=== PATIENT | female | born 1935 | race African-American/Black ===

== ENCOUNTER 2017-05-31 11:29 | Inpatient (IN) | payer MEDICARE, OTHER ==
[~2017-05-31] VITALS: Ht 162.6 cm; Wt 73.6 kg
[~2017-05-31 11:29] MED LIST: AMIN30LI28 PO; AMLO-511 PO; DOCU-119 PO; DOXY100C PO; FURO20 PO; IPRA3AMP4 NEB; IPRAHFA IH; PRED-284 PO
[2017-05-31] MEDS ORDERED: MethylPREDNISolone SOD SUCC 125 MG/2 ML VIAL IVP ONE (11:45)
[2017-05-31] MEDS ORDERED: IPRATROPIUM BROMIDE 0.5 MG/2.5 ML NEB SOLUTION NEB ONE (11:45)
[2017-05-31] MEDS ORDERED: ALBUTEROL SULFATE 5 MG/ML 20 ML NEB SOLN [BULK] NEB ONE (11:45)
[2017-05-31] MEDS ORDERED: 0.9% SODIUM CHLORIDE 15 ML NEB SOLUTION NEB ONE (11:51)
[2017-05-31 12:00] LABS: BASOPHILS % (AUTO) 0.3 % (0.0-2.0); EOSINOPHILS % (AUTO) 0.2 % (1.0-6.0); HEMATOCRIT 38.1 % (36-46); HEMOGLOBIN 12.1 g/dL (12.0-16.0); LYMPHOCYTES % (AUTO) 15.4 % (22.0-44.0); MEAN CORPUSCULAR HEMOGLOBIN 27.8 pg (26.0-34.0); MEAN CORPUSCULAR HGB CONC 31.8 G/dL (31.0-37.0); MEAN CORPUSCULAR VOLUME 87 fL (80-100); MONOCYTES # (AUTO) 1.3 K/uL (0.1-1.0); MONOCYTES % (AUTO) 9.9 % (2.0-9.0); NEUTROPHILS # (AUTO) 9.7 K/uL (1.8-7.7); NEUTROPHILS % (AUTO) 74.2 % (40.0-70.0); PLATELET COUNT (AUTO) 348 K/uL (150-450); RED BLOOD CELL COUNT(AUTO) 4.37 MIL/uL (4.00-5.20); RED CELL DISTRIBUTION WIDTH 18.7 % (11.5-14.5)
[2017-05-31 12:01] LABS: APPEARANCE,URINE TURBID (CLEAR); GLUCOSE, URINE (UA) NEGATIVE (NEGATIVE); KETONES,URINE NEGATIVE (NEGATIVE); LEUKOCYTE ESTERASE ,URINE MODERATE (NEGATIVE); OCCULT BLOOD,URINE NEGATIVE (NEGATIVE); PROTEIN,URINE TRACE (NEGATIVE)
[2017-05-31 12:06] LABS: ADD UA MICROSCOPIC YES
[2017-05-31 12:13] LABS: ALANINE AMINOTRANSFERASE 19 U/L (12-78); ALBUMIN 2.3 g/dL (3.4-5.0); ANION GAP -3 mmol/L (8-16); ASPARTATE AMINOTRANSFERASE 18 U/L (15-37); BILIRUBIN,TOTAL 0.2 mg/dL (0.1-1.0); CALCIUM, TOTAL 8.8 mg/dL (8.8-10.5); CHLORIDE 89 mmol/L (98-107); CREATININE 0.53 mg/dL (0.60-1.30); GLOMERULAR FILTR. RATE CALC > 60 mL/min (>60); POTASSIUM 3.6 mmol/L (3.5-5.1); SODIUM SERUM 131 mmol/L (136-145); TOTAL PROTEIN, SERUM 6.9 g/dL (6.4-8.2); UREA NITROGEN, BLOOD 39 mg/dL (7-18)
[2017-05-31] MEDS ORDERED: SODIUM CHLORIDE 0.9% 1,000 ML IV ONE ×2 (12:15→12:45)
[2017-05-31 12:17] LABS: B-TYPE NATRIURETIC PEPTIDE 468 pg/mL (0-100)
[2017-05-31 12:18] LABS: CARBON DIOXIDE 45 mmol/L (22-29)
[2017-05-31 12:20] LABS: RBC,URINE None Seen /HPF (0-2); SQUAMOUS EPITHELIAL CELL,UR Few /LPF (None Seen); WBC,URINE 26-50 /HPF (0-5)
[2017-05-31 12:23] LABS: RBC MORPHOLOGY COMMENT ABNORMAL RBC MORPH
[2017-05-31] MEDS ORDERED: PIPERACILLIN/TAZO 3.375 GM/D5W 50 ML IV ONE (12:45)
[2017-05-31] MEDS ORDERED: LEVOFLOXACIN 500 MG/D5% WATER 100 ML IV ONE (12:45)
[2017-05-31 12:58] LABS: INR 1.1 (0.9-1.1); PROTHROMBIN TIME 11.3 SEC (9.4-11.6)
[2017-05-31] MEDS ORDERED: SODIUM CHLORIDE 0.9% 500 ML IV ONE (13:00)
[2017-05-31] MEDS ORDERED: MAGNESIUM HYDROXIDE SUSPENSION 30 ML UDCUP PO PRN (14:00)
[2017-05-31] MEDS ORDERED: ONDANSETRON HCL 4 MG/2 ML VIAL IVP PRN (14:00)
[2017-05-31] MEDS ORDERED: ACETAMINOPHEN 325 MG TABLET PO PRN (14:00)
[2017-05-31] MEDS ORDERED: VANCOMYCIN HCL 1 GM/D5% WATER 200 ML IV ONE ×2 (14:15→23:00)
[2017-05-31] MEDS ORDERED: *CLINICAL-LEVOFLOXACIN IVPB DOSING CLINICAL ONE ×2 (14:15)
[2017-05-31] MEDS ORDERED: IPRATROPIUM BROMIDE 0.5 MG/2.5 ML NEB SOLUTION NEB SCH (15:00)
[2017-05-31] MEDS ORDERED: ALBUTEROL SULFATE 2.5 MG/0.5 ML NEB SOLUTION NEB SCH (15:00)
[2017-05-31 15:05] VITALS: BP 132/40
[2017-05-31 16:27] LABS: ABG A-A DIFF O2 199.5 mmHg (10-20.0); ABG BASE EXCESS 14.5 mmol/L (-2.0-3.0); ABG HCO3 34.9 mmol/L (22.0-26.0); ABG OXYHEMOGLOBIN 87.8 % (94.0-100.0); ABG PH 7.303 (7.35-7.450); TEMPERATURE, FAHRENHEIT, BG 98.6 FAHREN (96.0-98.6)
[2017-05-31 16:37] LABS: ABG PCO2 84 mmHg (35-45); ALLEN TEST, BLOOD GAS Positive
[2017-05-31 16:38] LABS: IPAP, BG 16 cm H2O
[2017-05-31] MEDS ORDERED: SODIUM CHLORIDE 0.9% 100 ML ONE (17:31)
[2017-05-31] MEDS: HEPARIN SODIUM,PORCINE 5,000 UNITS/ML VIAL SQ SCH ×2 (17:57→23:21)
[2017-05-31] MEDS: METOPROLOL TARTRATE 25 MG TABLET PO SCH ×2 (17:57→19:58)
[2017-05-31] MEDS: ALBUTEROL SULFATE 2.5 MG/0.5 ML NEB SOLUTION NEB SCH ×3 (18:27→23:30)
[2017-05-31] MEDS: IPRATROPIUM BROMIDE 0.5 MG/2.5 ML NEB SOLUTION NEB SCH ×3 (18:27→23:30)
[2017-05-31 19:41] VITALS: BP 121/71
[2017-05-31] MEDS: FUROSEMIDE 20 MG/2 ML VIAL IVP SCH (19:58)
[2017-05-31] MEDS: PIPERACILLIN/TAZO 3.375 GM/D5W 50 ML IV SCH ×2 (19:58→23:21)
[2017-05-31] MEDS: DOCUSATE SODIUM 100 MG CAPSULE PO SCH (19:59)
[2017-05-31 23:39] VITALS: BP 114/58
[2017-06-01] MEDS: ALBUTEROL SULFATE 2.5 MG/0.5 ML NEB SOLUTION NEB SCH ×5 (04:03→18:37)
[2017-06-01] MEDS: IPRATROPIUM BROMIDE 0.5 MG/2.5 ML NEB SOLUTION NEB SCH ×5 (04:03→18:37)
[2017-06-01 04:22] VITALS: BP 145/63
[2017-06-01 07:11] VITALS: BP 138/87
[2017-06-01 07:25] LABS: ANION GAP 4 mmol/L (8-16); CALCIUM, TOTAL 8.8 mg/dL (8.8-10.5); CARBON DIOXIDE 40 mmol/L (22-29); CHLORIDE 91 mmol/L (98-107); GLOMERULAR FILTR. RATE CALC > 60 mL/min (>60); POTASSIUM 3.3 mmol/L (3.5-5.1); SODIUM SERUM 135 mmol/L (136-145); UREA NITROGEN, BLOOD 34 mg/dL (7-18)
[2017-06-01] MEDS ORDERED: -PHARMACY VACCINE NOTE- MISC ONE ×2 (07:30)
[2017-06-01] MEDS: FUROSEMIDE 20 MG/2 ML VIAL IVP SCH ×2 (08:44→20:02)
[2017-06-01] MEDS: HEPARIN SODIUM,PORCINE 5,000 UNITS/ML VIAL SQ SCH ×3 (08:44→23:34)
[2017-06-01] MEDS: PIPERACILLIN/TAZO 3.375 GM/D5W 50 ML IV SCH ×3 (08:44→17:59)
[2017-06-01] MEDS: ASPIRIN 81 MG CHEWABLE TABLET PO SCH (08:45)
[2017-06-01] MEDS: PANTOPRAZOLE SODIUM 40 MG/VIAL IVP SCH (08:45)
[2017-06-01] MEDS: METOPROLOL TARTRATE 25 MG TABLET PO SCH ×2 (08:45→20:02)
[2017-06-01] MEDS: DOCUSATE SODIUM 100 MG CAPSULE PO SCH ×2 (08:46→20:02)
[2017-06-01] MEDS ORDERED: DEXTROSE 50%-WATER 25 GM/50 ML SYRINGE IVP PRN (10:30)
[2017-06-01] MEDS ORDERED: POTASSIUM CHL 10 MEQ/WATER 50 ML IV PRN (10:30)
[2017-06-01] MEDS: VANCOMYCIN HCL 1 GM/D5% WATER 200 ML IV SCH ×2 (10:45→20:01)
[2017-06-01 10:49] VITALS: BP 110/58
[2017-06-01] MEDS: INSULIN REGULAR, HUMAN 100 UNITS/ML SQ PRN ×2 (12:27→18:03)
[2017-06-01] MEDS ORDERED: SODIUM CHLORIDE 0.9% 100 ML ONE (13:16)
[2017-06-01] MEDS: MethylPREDNISolone SOD SUCC 40 MG/ML VIAL IVP SCH ×3 (13:21→23:34)
[2017-06-01] MEDS: LEVOFLOXACIN 250 MG/D5% WATER 50 ML IV SCH (13:21)
[2017-06-01] MEDS: ACETYLCYSTEINE 10% 100 MG/ML 4 ML NEB SOLUTION NEB SCH ×2 (15:00→18:37)
[2017-06-01 16:00] VITALS: BP 140/90
[2017-06-01] MEDS ORDERED: SODIUM CHLORIDE 0.9% 250 ML IV ONE (17:53)
[2017-06-01 20:01] LABS: ABG A-A DIFF O2 84.1 mmHg (10-20.0); ABG HCO3 38.8 mmol/L (22.0-26.0); ABG OXYHEMOGLOBIN 91.1 % (94.0-100.0); ABG PH 7.418 (7.35-7.450); TEMPERATURE, FAHRENHEIT, BG 97.9 FAHREN (96.0-98.6)
[2017-06-01 20:04] LABS: ABG PCO2 67 mmHg (35-45); ALLEN TEST, BLOOD GAS Positive
[2017-06-01 20:36] VITALS: BP 153/71
[2017-06-01] MEDS: POTASSIUM CHLORIDE 10% 40 MEQ/30 ML LIQUID UDCUP GT PRN (20:59)
[2017-06-02] MEDS: ALBUTEROL SULFATE 2.5 MG/0.5 ML NEB SOLUTION NEB SCH ×7 (00:04→23:49)
[2017-06-02] MEDS: ACETYLCYSTEINE 10% 100 MG/ML 4 ML NEB SOLUTION NEB SCH ×7 (00:04→23:49)
[2017-06-02] MEDS: IPRATROPIUM BROMIDE 0.5 MG/2.5 ML NEB SOLUTION NEB SCH ×7 (00:05→23:49)
[2017-06-02] MEDS: PIPERACILLIN/TAZO 3.375 GM/D5W 50 ML IV SCH ×4 (00:08→18:15)
[2017-06-02 00:46] VITALS: BP 165/82
[2017-06-02 04:02] VITALS: BP 151/82
[2017-06-02] MEDS: MethylPREDNISolone SOD SUCC 40 MG/ML VIAL IVP SCH ×4 (05:06→23:38)
[2017-06-02] MEDS: INSULIN REGULAR, HUMAN 100 UNITS/ML SQ PRN ×4 (05:21→23:56)
[2017-06-02 06:23] LABS: CALCIUM, TOTAL 8.7 mg/dL (8.8-10.5); CHLORIDE 93 mmol/L (98-107); CREATININE 0.58 mg/dL (0.60-1.30); GLOMERULAR FILTR. RATE CALC > 60 mL/min (>60); POTASSIUM 3.9 mmol/L (3.5-5.1); SODIUM SERUM 136 mmol/L (136-145); UREA NITROGEN, BLOOD 29 mg/dL (7-18)
[2017-06-02 07:25] VITALS: BP 152/81
[2017-06-02 07:44] LABS: ANION GAP 3 mmol/L (8-16)
[2017-06-02 07:45] LABS: CARBON DIOXIDE 40 mmol/L (22-29)
[2017-06-02] MEDS: HEPARIN SODIUM,PORCINE 5,000 UNITS/ML VIAL SQ SCH ×3 (08:53→23:36)
[2017-06-02] MEDS: VANCOMYCIN HCL 1 GM/D5% WATER 200 ML IV SCH ×2 (08:53→19:43)
[2017-06-02] MEDS: METOPROLOL TARTRATE 25 MG TABLET PO SCH ×2 (09:02→20:02)
[2017-06-02] MEDS: ASPIRIN 81 MG CHEWABLE TABLET PO SCH (09:02)
[2017-06-02] MEDS: PANTOPRAZOLE SODIUM 40 MG/VIAL IVP SCH (09:03)
[2017-06-02] MEDS: FUROSEMIDE 20 MG/2 ML VIAL IVP SCH ×2 (09:03→20:02)
[2017-06-02] MEDS: DOCUSATE SODIUM 100 MG CAPSULE PO SCH ×2 (09:03→20:03)
[2017-06-02 11:10] VITALS: BP 146/70
[2017-06-02] MEDS: LEVOFLOXACIN 250 MG/D5% WATER 50 ML IV SCH (12:11)
[2017-06-02 14:43] LABS: GLUCOSE,POINT OF CARE 230 MG/DL (70-110)
[2017-06-02 14:44] LABS: GLUCOSE COMMENT 1 Received Meds; GLUCOSE,POINT OF CARE 278 MG/DL (70-110)
[2017-06-02 14:44] LABS: GLUCOSE COMMENT 1 Received Meds; GLUCOSE,POINT OF CARE 329 MG/DL (70-110)
[2017-06-02 14:44] LABS: GLUCOSE,POINT OF CARE 233 MG/DL (70-110)
[2017-06-02 14:44] LABS: GLUCOSE COMMENT 1 Received Meds; GLUCOSE,POINT OF CARE 281 MG/DL (70-110)
[2017-06-02 15:33] VITALS: BP 153/82
[2017-06-02 20:08] VITALS: BP 168/95
[2017-06-03] VITALS (7 sets, daily range): BP systolic 107–143; BP diastolic 58–94
[2017-06-03] MEDS: PIPERACILLIN/TAZO 3.375 GM/D5W 50 ML IV SCH ×4 (00:01→18:28)
[2017-06-03] MEDS: ALBUTEROL SULFATE 2.5 MG/0.5 ML NEB SOLUTION NEB SCH ×6 (02:54→23:12)
[2017-06-03] MEDS: IPRATROPIUM BROMIDE 0.5 MG/2.5 ML NEB SOLUTION NEB SCH ×6 (02:54→23:12)
[2017-06-03] MEDS: ACETYLCYSTEINE 10% 100 MG/ML 4 ML NEB SOLUTION NEB SCH ×6 (02:56→23:12)
[2017-06-03] MEDS: MethylPREDNISolone SOD SUCC 40 MG/ML VIAL IVP SCH ×4 (05:39→22:53)
[2017-06-03] MEDS: INSULIN REGULAR, HUMAN 100 UNITS/ML SQ PRN ×4 (05:46→22:41)
[2017-06-03 06:33] LABS: ANION GAP 3 mmol/L (8-16); CHLORIDE 92 mmol/L (98-107); CREATININE 0.39 mg/dL (0.60-1.30); GLOMERULAR FILTR. RATE CALC > 60 mL/min (>60); SODIUM SERUM 139 mmol/L (136-145); UREA NITROGEN, BLOOD 28 mg/dL (7-18)
[2017-06-03 07:03] LABS: CARBON DIOXIDE 44 mmol/L (22-29)
[2017-06-03 07:43] LABS: GLUCOSE,POINT OF CARE 284 MG/DL (70-110)
[2017-06-03 07:43] LABS: GLUCOSE COMMENT 1 Received Meds; GLUCOSE,POINT OF CARE 230 MG/DL (70-110)
[2017-06-03 07:43] LABS: GLUCOSE COMMENT 1 Received Meds; GLUCOSE,POINT OF CARE 264 MG/DL (70-110)
[2017-06-03] MEDS: HEPARIN SODIUM,PORCINE 5,000 UNITS/ML VIAL SQ SCH ×3 (09:36→22:54)
[2017-06-03] MEDS: PANTOPRAZOLE SODIUM 40 MG/VIAL IVP SCH (09:36)
[2017-06-03] MEDS: FUROSEMIDE 20 MG/2 ML VIAL IVP SCH ×2 (09:37→21:43)
[2017-06-03] MEDS: DOCUSATE SODIUM 100 MG CAPSULE PO SCH ×2 (09:37→20:05)
[2017-06-03] MEDS: METOPROLOL TARTRATE 25 MG TABLET PO SCH ×2 (09:37→21:44)
[2017-06-03] MEDS: ASPIRIN 81 MG CHEWABLE TABLET PO SCH (09:37)
[2017-06-03] MEDS: VANCOMYCIN HCL 1 GM/D5% WATER 200 ML IV SCH ×2 (09:50→20:00)
[2017-06-03] MEDS: LEVOFLOXACIN 250 MG/D5% WATER 50 ML IV SCH (12:28)
[2017-06-03] MEDS: OXYGEN THERAPY IH SCH (23:12)
[2017-06-04 01:02] LABS: GLUCOSE COMMENT 1 Received Meds; GLUCOSE,POINT OF CARE 218 MG/DL (70-110)
[2017-06-04 01:02] LABS: GLUCOSE COMMENT 1 Received Meds; GLUCOSE,POINT OF CARE 232 MG/DL (70-110)
[2017-06-04] MEDS: PIPERACILLIN/TAZO 3.375 GM/D5W 50 ML IV SCH ×4 (01:31→18:19)
[2017-06-04] MEDS: ALBUTEROL SULFATE 2.5 MG/0.5 ML NEB SOLUTION NEB SCH ×6 (02:58→23:26)
[2017-06-04] MEDS: IPRATROPIUM BROMIDE 0.5 MG/2.5 ML NEB SOLUTION NEB SCH ×6 (02:58→23:26)
[2017-06-04] MEDS: ACETYLCYSTEINE 10% 100 MG/ML 4 ML NEB SOLUTION NEB SCH ×6 (02:58→23:27)
[2017-06-04 05:06] VITALS: BP 146/70
[2017-06-04] MEDS: MethylPREDNISolone SOD SUCC 40 MG/ML VIAL IVP SCH ×3 (05:44→18:19)
[2017-06-04 07:00] LABS: CALCIUM, TOTAL 8.9 mg/dL (8.8-10.5); CHLORIDE 92 mmol/L (98-107); CREATININE 0.41 mg/dL (0.60-1.30); GLOMERULAR FILTR. RATE CALC > 60 mL/min (>60); POTASSIUM 3.8 mmol/L (3.5-5.1); SODIUM SERUM 142 mmol/L (136-145); UREA NITROGEN, BLOOD 30 mg/dL (7-18)
[2017-06-04 07:11] LABS: ANION GAP -1 mmol/L (8-16); CARBON DIOXIDE 51 mmol/L (22-29)
[2017-06-04 07:33] LABS: GLUCOSE COMMENT 1 Received Meds; GLUCOSE,POINT OF CARE 247 MG/DL (70-110)
[2017-06-04 07:55] VITALS: BP 150/79
[2017-06-04] MEDS: OXYGEN THERAPY IH SCH ×2 (08:40→20:22)
[2017-06-04] MEDS: DOCUSATE SODIUM 100 MG CAPSULE PO SCH ×2 (09:00→21:00)
[2017-06-04] MEDS: VANCOMYCIN HCL 1 GM/D5% WATER 200 ML IV SCH ×2 (09:02→21:20)
[2017-06-04] MEDS: HEPARIN SODIUM,PORCINE 5,000 UNITS/ML VIAL SQ SCH ×2 (09:02→16:03)
[2017-06-04] MEDS: PANTOPRAZOLE SODIUM 40 MG/VIAL IVP SCH (09:02)
[2017-06-04] MEDS: METOPROLOL TARTRATE 25 MG TABLET PO SCH ×2 (09:03→21:21)
[2017-06-04] MEDS: ASPIRIN 81 MG CHEWABLE TABLET PO SCH (09:03)
[2017-06-04] MEDS: FUROSEMIDE 20 MG/2 ML VIAL IVP SCH ×2 (09:03→21:21)
[2017-06-04 11:21] VITALS: BP 158/87
[2017-06-04] MEDS: LEVOFLOXACIN 250 MG/D5% WATER 50 ML IV SCH (12:15)
[2017-06-04] MEDS: INSULIN REGULAR, HUMAN 100 UNITS/ML SQ PRN ×2 (12:30→18:24)
[2017-06-04 15:59] VITALS: BP 139/77
[2017-06-04] MEDS ORDERED: GABAPENTIN 100 MG CAPSULE PEG SCH (16:00)
[2017-06-04] MEDS: GABAPENTIN 300 MG CAPSULE PEG SCH ×2 (16:02→21:21)
[2017-06-04] MEDS: BACLOFEN 10 MG TABLET PEG SCH ×2 (16:02→21:21)
[2017-06-04] MEDS ORDERED: SODIUM CHLORIDE 0.9% 100 ML ONE (18:04)
[2017-06-04 19:49] VITALS: BP 107/48
[2017-06-04 23:55] VITALS: BP 99/52
[2017-06-05] MEDS: HEPARIN SODIUM,PORCINE 5,000 UNITS/ML VIAL SQ SCH ×3 (01:46→16:59)
[2017-06-05] MEDS: MethylPREDNISolone SOD SUCC 40 MG/ML VIAL IVP SCH ×4 (01:46→18:16)
[2017-06-05] MEDS: PIPERACILLIN/TAZO 3.375 GM/D5W 50 ML IV SCH ×4 (01:47→18:16)
[2017-06-05] MEDS: INSULIN REGULAR, HUMAN 100 UNITS/ML SQ PRN ×4 (01:49→18:49)
[2017-06-05] MEDS: ALBUTEROL SULFATE 2.5 MG/0.5 ML NEB SOLUTION NEB SCH ×6 (03:26→23:19)
[2017-06-05] MEDS: ACETYLCYSTEINE 10% 100 MG/ML 4 ML NEB SOLUTION NEB SCH ×6 (03:26→23:20)
[2017-06-05] MEDS: IPRATROPIUM BROMIDE 0.5 MG/2.5 ML NEB SOLUTION NEB SCH ×6 (03:26→23:19)
[2017-06-05 04:13] VITALS: BP 94/50
[2017-06-05 05:08] LABS: GLUCOSE COMMENT 1 Received Meds; GLUCOSE,POINT OF CARE 203 MG/DL (70-110)
[2017-06-05 05:13] LABS: GLUCOSE COMMENT 1 Received Meds; GLUCOSE,POINT OF CARE 206 MG/DL (70-110)
[2017-06-05 05:19] LABS: GLUCOSE COMMENT 1 Received Meds; GLUCOSE,POINT OF CARE 203 MG/DL (70-110)
[2017-06-05 05:19] LABS: GLUCOSE COMMENT 1 Received Meds; GLUCOSE,POINT OF CARE 248 MG/DL (70-110)
[2017-06-05 08:12] LABS: CALCIUM, TOTAL 8.5 mg/dL (8.8-10.5); CHLORIDE 93 mmol/L (98-107); CREATININE 0.62 mg/dL (0.60-1.30); GLOMERULAR FILTR. RATE CALC > 60 mL/min (>60); POTASSIUM 3.5 mmol/L (3.5-5.1); SODIUM SERUM 143 mmol/L (136-145); UREA NITROGEN, BLOOD 50 mg/dL (7-18)
[2017-06-05 08:25] VITALS: BP 110/55
[2017-06-05] MEDS: METOPROLOL TARTRATE 25 MG TABLET PO SCH ×2 (08:43→21:00)
[2017-06-05 08:51] LABS: ANION GAP 3 mmol/L (8-16); CARBON DIOXIDE 47 mmol/L (22-29)
[2017-06-05] MEDS: GABAPENTIN 300 MG CAPSULE PEG SCH ×3 (08:52→20:59)
[2017-06-05] MEDS: PANTOPRAZOLE SODIUM 40 MG/VIAL IVP SCH (08:52)
[2017-06-05] MEDS: VANCOMYCIN HCL 1 GM/D5% WATER 200 ML IV SCH (08:52)
[2017-06-05] MEDS: DOCUSATE SODIUM 100 MG CAPSULE PO SCH ×2 (08:52→21:01)
[2017-06-05] MEDS: ASPIRIN 81 MG CHEWABLE TABLET PO SCH (08:53)
[2017-06-05] MEDS: BACLOFEN 10 MG TABLET PEG SCH ×3 (08:53→20:59)
[2017-06-05] MEDS: OXYGEN THERAPY IH SCH ×2 (09:18→21:01)
[2017-06-05] MEDS: FUROSEMIDE 20 MG/2 ML VIAL IVP SCH ×2 (10:17→21:00)
[2017-06-05] MEDS ORDERED: VANCOMYCIN HCL 1 GM/D5% WATER 200 ML IV PRN (10:45)
[2017-06-05] MEDS ORDERED: LEVO500T2 PO (11:44)
[2017-06-05] MEDS ORDERED: CLIN300C9 PO (11:44)
[2017-06-05] MEDS ORDERED: ASPI81 PO (11:44)
[2017-06-05 11:51] VITALS: BP 108/63
[2017-06-05] MEDS: LEVOFLOXACIN 250 MG/D5% WATER 50 ML IV SCH (12:59)
[2017-06-05] MEDS ORDERED: LORazepam 2 MG/ML VIAL ONE (15:10)
[2017-06-05] MEDS ORDERED: LORazepam 2 MG/ML VIAL IM ONE (15:15)
[2017-06-05] MEDS: LevETIRAcetam 500 MG in DEXTROSE 5%-WATER 100 ML IV SCH (15:29)
[2017-06-05 15:58] VITALS: BP 104/65
[2017-06-05 16:48] LABS: ABG BASE EXCESS 32.6 mmol/L (-2.0-3.0); ABG HCO3 52.2 mmol/L (22.0-26.0); ABG OXYHEMOGLOBIN 65.2 % (94.0-100.0); ABG PH 7.396 (7.35-7.450); TEMPERATURE, FAHRENHEIT, BG 98.6 FAHREN (96.0-98.6)
[2017-06-05 16:51] LABS: ABG PCO2 96 mmHg (35-45)
[2017-06-05 16:52] LABS: ALLEN TEST, BLOOD GAS Positive
[2017-06-05 19:44] VITALS: BP 115/62
[2017-06-05 23:55] VITALS: BP 93/48
[2017-06-06] VITALS (7 sets, daily range): BP systolic 99–116; BP diastolic 45–65
[2017-06-06] MEDS: HEPARIN SODIUM,PORCINE 5,000 UNITS/ML VIAL SQ SCH ×3 (00:29→17:15)
[2017-06-06] MEDS: MethylPREDNISolone SOD SUCC 40 MG/ML VIAL IVP SCH ×4 (00:29→18:59)
[2017-06-06] MEDS: PIPERACILLIN/TAZO 3.375 GM/D5W 50 ML IV SCH ×4 (00:29→20:18)
[2017-06-06] MEDS: INSULIN REGULAR, HUMAN 100 UNITS/ML SQ PRN ×3 (01:00→11:44)
[2017-06-06] MEDS: IPRATROPIUM BROMIDE 0.5 MG/2.5 ML NEB SOLUTION NEB SCH ×6 (02:57→23:47)
[2017-06-06] MEDS: ALBUTEROL SULFATE 2.5 MG/0.5 ML NEB SOLUTION NEB SCH ×6 (02:57→23:47)
[2017-06-06] MEDS: ACETYLCYSTEINE 10% 100 MG/ML 4 ML NEB SOLUTION NEB SCH ×6 (02:57→23:45)
[2017-06-06 03:52] LABS: GLUCOSE COMMENT 1 Received Meds; GLUCOSE,POINT OF CARE 249 MG/DL (70-110)
[2017-06-06 03:53] LABS: GLUCOSE COMMENT 1 Received Meds; GLUCOSE,POINT OF CARE 261 MG/DL (70-110)
[2017-06-06 03:53] LABS: GLUCOSE COMMENT 1 Received Meds; GLUCOSE,POINT OF CARE 236 MG/DL (70-110)
[2017-06-06 03:53] LABS: GLUCOSE COMMENT 1 Received Meds; GLUCOSE,POINT OF CARE 233 MG/DL (70-110)
[2017-06-06] MEDS: LevETIRAcetam 500 MG in DEXTROSE 5%-WATER 100 ML IV SCH ×2 (04:00→17:15)
[2017-06-06 06:38] LABS: GLUCOSE COMMENT 1 Received Meds; GLUCOSE,POINT OF CARE 245 MG/DL (70-110)
[2017-06-06 08:06] LABS: CALCIUM, TOTAL 8.8 mg/dL (8.8-10.5); CHLORIDE 93 mmol/L (98-107); CREATININE 0.77 mg/dL (0.60-1.30); GLOMERULAR FILTR. RATE CALC > 60 mL/min (>60); POTASSIUM 3.4 mmol/L (3.5-5.1); SODIUM SERUM 143 mmol/L (136-145); UREA NITROGEN, BLOOD 64 mg/dL (7-18)
[2017-06-06 08:25] LABS: ANION GAP -2 mmol/L (8-16)
[2017-06-06 08:26] LABS: CARBON DIOXIDE 52 mmol/L (22-29)
[2017-06-06] MEDS: OXYGEN THERAPY IH SCH ×2 (08:45→20:18)
[2017-06-06] MEDS: BACLOFEN 10 MG TABLET PEG SCH ×3 (08:46→21:21)
[2017-06-06] MEDS: FUROSEMIDE 20 MG/2 ML VIAL IVP SCH ×2 (08:46→21:21)
[2017-06-06] MEDS: DOCUSATE SODIUM 100 MG CAPSULE PO SCH ×2 (08:46→21:00)
[2017-06-06] MEDS: PANTOPRAZOLE SODIUM 40 MG/VIAL IVP SCH (08:46)
[2017-06-06] MEDS: GABAPENTIN 300 MG CAPSULE PEG SCH ×3 (08:46→21:21)
[2017-06-06] MEDS: ASPIRIN 81 MG CHEWABLE TABLET PO SCH (08:46)
[2017-06-06] MEDS: METOPROLOL TARTRATE 25 MG TABLET PO SCH ×2 (10:15→21:00)
[2017-06-06] MEDS: LEVOFLOXACIN 250 MG/D5% WATER 50 ML IV SCH (11:39)
[2017-06-06] MEDS: POTASSIUM CHLORIDE 10% 40 MEQ/30 ML LIQUID UDCUP GT PRN (11:45)
[2017-06-06] MEDS ORDERED: SODIUM CHLORIDE 0.9% 100 ML ONE (11:59)
[2017-06-06 15:13] LABS: ABG A-A DIFF O2 41.6 mmHg (10-20.0); ABG BASE EXCESS 30.1 mmol/L (-2.0-3.0); ABG OXYHEMOGLOBIN 83.5 % (94.0-100.0); ABG PH 7.507 (7.35-7.450); TEMPERATURE, FAHRENHEIT, BG 98.6 FAHREN (96.0-98.6)
[2017-06-06 15:29] LABS: ABG PCO2 69 mmHg (35-45)
[2017-06-06 15:31] LABS: IPAP, BG 16 cm H2O
[2017-06-07] MEDS: HEPARIN SODIUM,PORCINE 5,000 UNITS/ML VIAL SQ SCH ×4 (00:19→23:08)
[2017-06-07] MEDS: MethylPREDNISolone SOD SUCC 40 MG/ML VIAL IVP SCH ×5 (00:19→23:07)
[2017-06-07] MEDS: INSULIN REGULAR, HUMAN 100 UNITS/ML SQ PRN ×4 (00:24→18:08)
[2017-06-07] MEDS: PIPERACILLIN/TAZO 3.375 GM/D5W 50 ML IV SCH ×4 (01:25→20:51)
[2017-06-07] MEDS ORDERED: SODIUM CHLORIDE 0.9% 100 ML ONE (01:26)
[2017-06-07] MEDS: LevETIRAcetam 500 MG in DEXTROSE 5%-WATER 100 ML IV SCH ×2 (03:08→17:58)
[2017-06-07] MEDS: IPRATROPIUM BROMIDE 0.5 MG/2.5 ML NEB SOLUTION NEB SCH ×6 (03:29→23:03)
[2017-06-07] MEDS: ACETYLCYSTEINE 10% 100 MG/ML 4 ML NEB SOLUTION NEB SCH ×6 (03:30→23:03)
[2017-06-07] MEDS: ALBUTEROL SULFATE 2.5 MG/0.5 ML NEB SOLUTION NEB SCH ×6 (03:30→23:03)
[2017-06-07 04:24] VITALS: BP 95/59
[2017-06-07 04:42] LABS: GLUCOSE COMMENT 1 Received Meds; GLUCOSE,POINT OF CARE 257 MG/DL (70-110)
[2017-06-07 04:43] LABS: GLUCOSE COMMENT 1 Received Meds; GLUCOSE,POINT OF CARE 271 MG/DL (70-110)
[2017-06-07 04:43] LABS: GLUCOSE COMMENT 1 Received Meds; GLUCOSE,POINT OF CARE 281 MG/DL (70-110)
[2017-06-07 06:33] LABS: GLUCOSE COMMENT 1 Received Meds; GLUCOSE,POINT OF CARE 263 MG/DL (70-110)
[2017-06-07 07:09] LABS: CALCIUM, TOTAL 8.8 mg/dL (8.8-10.5); CHLORIDE 95 mmol/L (98-107); GLOMERULAR FILTR. RATE CALC > 60 mL/min (>60); POTASSIUM 4.6 mmol/L (3.5-5.1); SODIUM SERUM 144 mmol/L (136-145); UREA NITROGEN, BLOOD 67 mg/dL (7-18)
[2017-06-07 07:30] VITALS: BP 103/66
[2017-06-07 07:55] LABS: ANION GAP 0 mmol/L (8-16)
[2017-06-07] MEDS: OXYGEN THERAPY IH SCH ×2 (07:56→20:51)
[2017-06-07] MEDS: FUROSEMIDE 20 MG/2 ML VIAL IVP SCH ×2 (07:57→20:51)
[2017-06-07 07:58] LABS: CARBON DIOXIDE 49 mmol/L (22-29)
[2017-06-07] MEDS: PANTOPRAZOLE SODIUM 40 MG/VIAL IVP SCH (07:58)
[2017-06-07] MEDS: GABAPENTIN 300 MG CAPSULE PEG SCH ×3 (07:59→20:51)
[2017-06-07] MEDS: ASPIRIN 81 MG CHEWABLE TABLET PO SCH (07:59)
[2017-06-07] MEDS: BACLOFEN 10 MG TABLET PEG SCH ×3 (07:59→20:52)
[2017-06-07] MEDS: DOCUSATE SODIUM 100 MG CAPSULE PO SCH ×2 (07:59→20:52)
[2017-06-07 11:27] VITALS: BP 120/57
[2017-06-07] MEDS: LEVOFLOXACIN 250 MG/D5% WATER 50 ML IV SCH (12:29)
[2017-06-07] MEDS: METOPROLOL TARTRATE 25 MG TABLET PO SCH ×2 (12:32→20:53)
[2017-06-07 15:41] VITALS: BP 116/63
[2017-06-07 19:56] VITALS: BP 107/70
[2017-06-07 23:35] VITALS: BP 93/58
[2017-06-08] MEDS ORDERED: SODIUM CHLORIDE 0.9% 1,000 ML IV ONE (00:14)
[2017-06-08] MEDS: PIPERACILLIN/TAZO 3.375 GM/D5W 50 ML IV SCH ×2 (00:16→06:15)
[2017-06-08] MEDS: INSULIN REGULAR, HUMAN 100 UNITS/ML SQ PRN ×2 (00:17→05:20)
[2017-06-08] MEDS: ALBUTEROL SULFATE 2.5 MG/0.5 ML NEB SOLUTION NEB SCH ×3 (03:10→11:41)
[2017-06-08] MEDS: IPRATROPIUM BROMIDE 0.5 MG/2.5 ML NEB SOLUTION NEB SCH ×3 (03:10→11:41)
[2017-06-08] MEDS: ACETYLCYSTEINE 10% 100 MG/ML 4 ML NEB SOLUTION NEB SCH ×3 (03:10→11:41)
[2017-06-08 04:00] VITALS: BP 100/51
[2017-06-08] MEDS: MethylPREDNISolone SOD SUCC 40 MG/ML VIAL IVP SCH (05:11)
[2017-06-08] MEDS: LevETIRAcetam 500 MG in DEXTROSE 5%-WATER 100 ML IV SCH (05:41)
[2017-06-08 06:28] LABS: GLUCOSE,POINT OF CARE 277 MG/DL (70-110)
[2017-06-08 06:28] LABS: GLUCOSE COMMENT 1 Received Meds; GLUCOSE,POINT OF CARE 294 MG/DL (70-110)
[2017-06-08 06:28] LABS: GLUCOSE COMMENT 1 Received Meds; GLUCOSE,POINT OF CARE 292 MG/DL (70-110)
[2017-06-08 06:28] LABS: GLUCOSE,POINT OF CARE 272 MG/DL (70-110)
[2017-06-08 06:35] LABS: CALCIUM, TOTAL 8.7 mg/dL (8.8-10.5); CHLORIDE 99 mmol/L (98-107); CREATININE 0.84 mg/dL (0.60-1.30); GLOMERULAR FILTR. RATE CALC > 60 mL/min (>60); POTASSIUM 4.1 mmol/L (3.5-5.1); SODIUM SERUM 150 mmol/L (136-145); UREA NITROGEN, BLOOD 77 mg/dL (7-18)
[2017-06-08 07:02] LABS: ANION GAP 2 mmol/L (8-16); CARBON DIOXIDE 49 mmol/L (22-29)
[2017-06-08 07:16] VITALS: BP 100/50
[2017-06-08] MEDS: PANTOPRAZOLE SODIUM 40 MG/VIAL IVP SCH (08:37)
[2017-06-08] MEDS: HEPARIN SODIUM,PORCINE 5,000 UNITS/ML VIAL SQ SCH (08:37)
[2017-06-08] MEDS: BACLOFEN 10 MG TABLET PEG SCH (08:38)
[2017-06-08] MEDS: ASPIRIN 81 MG CHEWABLE TABLET PO SCH (08:38)
[2017-06-08] MEDS: FUROSEMIDE 20 MG/2 ML VIAL IVP SCH (08:38)
[2017-06-08] MEDS: DOCUSATE SODIUM 100 MG CAPSULE PO SCH (08:39)
[2017-06-08] MEDS: GABAPENTIN 300 MG CAPSULE PEG SCH (08:39)
[2017-06-08] MEDS: METOPROLOL TARTRATE 25 MG TABLET PO SCH (08:39)
[2017-06-08] MEDS: OXYGEN THERAPY IH SCH (08:39)
[2017-06-08] MEDS ORDERED: VANCOMYCIN HCL 1 GM/D5% WATER 200 ML IV ONE (10:00)
[2017-06-08 11:37] VITALS: BP 113/59
[2017-06-09] MEDS ORDERED: VANCOMYCIN HCL 750 MG in DEXTROSE 5%-WATER 150 ML IV SCH (08:00)
== END 2017-06-08 12:50 | disposition hospice, home (50) | DRG 871 ==
LOC: EMS 11:31 → 5S 13:04
PROVIDERS: ADMIT Internal Medicine; ATTEND Internal Medicine
PROC: 5A09457 Assistance with Respiratory Ventilation, 24-96 Consecutive Hours, Continuous Positive Airway Pressure (ICD-10-PCS; principal; 2017-05-31)
DX: A41.9 Sepsis, unspecified organism (principal); E43 Unspecified severe protein-calorie malnutrition; J69.0 Pneumonitis due to inhalation of food and vomit; I50.33 Acute on chronic diastolic (congestive) heart failure; J96.01 Acute respiratory failure with hypoxia; J96.02 Acute respiratory failure with hypercapnia; E87.0 Hyperosmolality and hypernatremia; J44.1 Chronic obstructive pulmonary disease with (acute) exacerbation; T17.590A Other foreign object in bronchus causing asphyxiation, initial encounter; I48.91 Unspecified atrial fibrillation; R13.10 Dysphagia, unspecified; I69.354 Hemiplegia and hemiparesis following cerebral infarction affecting left non-dominant side; N39.0 Urinary tract infection, site not specified; I07.1 Rheumatic tricuspid insufficiency; I11.0 Hypertensive heart disease with heart failure; F32.9 Major depressive disorder, single episode, unspecified; Z66 Do not resuscitate; Z82.49 Family history of ischemic heart disease and other diseases of the circulatory system; Z85.01 Personal history of malignant neoplasm of esophagus; Z88.6 Allergy status to analgesic agent; Z74.01 Bed confinement status
CPT/HCPCS: 51702; 71250; 82805; 82962; 83605; 84132; 87040; 87086; 93005; 93306; 94640; 94644; 94660; 94667; 94668; 94799; 96365; 96368; 96375; 99291; C9113; J0712; J1644; J1940; J1956; J2060; J2543; J2920; J2930; J3370; J7030; J7050; J7060